=== PATIENT | male | born 1970 | race Caucasian/White ===

== ENCOUNTER 2016-12-10 08:24 | Day surgery (SDC) | payer OTHER ==
[2016-12-10 09:20] LABS: Basophils % (Auto) 0.4 % (0.0-1.8); Eosinophils % (Auto) 0.7 % (0.0-4.3); Hematocrit 45.1 % (35.5-45.6); Hemoglobin 15.4 gm/dl (11.8-15.2); Mean Corpuscular HGB Conc 34 % (32-34); Mean Corpuscular Hemoglobin 31 pg (28-32); Mean Corpuscular Volume 91 fl (84-94); Platelet Count 136 K/mm3 (140-440); Red Blood Count 4.93 M/mm3 (3.65-5.03); Red Cell Distribution Width 12.9 % (13.2-15.2); White Blood Count 9.3 K/mm3 (4.5-11.0)
[2016-12-10 09:31] LABS: INR 0.97 (0.87-1.13)
[2016-12-10 09:42] LABS: Anion Gap 15 mmol/L; Blood Urea Nitrogen 17 mg/dL (9-20); Calcium 8.5 mg/dL (8.4-10.2); Carbon Dioxide 23 mmol/L (22-30); Chloride 105.4 mmol/L (98-107); Glucose 205 mg/dL (75-100); Potassium 4.2 mmol/L (3.6-5.0); Sodium 139 mmol/L (137-145)
[2016-12-10] MEDS ORDERED: ECOTRIN PO ONE (10:30)
[2016-12-10] MEDS ORDERED: NACL 0.9% 500 ML 500 ML IV SCH (10:30)
[2016-12-10] MEDS ORDERED: NITROGLYCERIN SYRINGE 3 ML ONE (11:55)
[2016-12-10] MEDS ORDERED: VERSED ONE (11:55)
[2016-12-10] MEDS ORDERED: HEPARIN 10,000 UNITS/10 ML ONE (11:55)
[2016-12-10] MEDS ORDERED: XYLOCAINE 2% INFILTRATI ONE (11:55)
[2016-12-10] MEDS ORDERED: HEPARIN/NS 5000 UNIT/500ML(CATH LAB) 1,000 ML IR ONE (11:55)
[2016-12-10] MEDS: SUBLIMAZE ONE ×2 (12:08→12:10)
[2016-12-10 15:19] VITALS: BP 108/73
--- NOTE | 2016-12-10 16:53 | Cardiac Catherization Report ---
LEFT HEART CATHETERIZATION INDICATION FOR PROCEDURE: Chest pain, abnormal myocardial perfusion scan. ORDERING PHYSICIAN: Roberto Anthony MD PROCEDURES PERFORMED: 1. Selective left and right coronary angiography. 2. Left ventriculography. DESCRIPTION OF PROCEDURE: After obtaining written consent, the patient was draped using sterile technique. A 2% lidocaine was injected into the right groin. A 5-Vincentian vascular sheath was then inserted into the right common femoral artery. A 5-Vincentian JL4 catheter was used to selectively engage the left coronary artery. A 5-Vincentian JR4 catheter was used to selectively engage the right coronary artery. A 5-Vincentian JR4 catheter was used to hand inject the left ventriculogram. No complications occurred during the procedure. Hemostasis was achieved at the end of the procedure using a 6-Vincentian Angio-Seal device. ESTIMATED BLOOD LOSS: Minimal. SPECIMEN REMOVED: None. FINDINGS: HEMODYNAMICS: Aortic pressure was 105/60 with an LV systolic pressure of 103 mmHg. The left ventricular end-diastolic pressure was measured at 10 mmHg. There was no significant gradient across the left ventricular outflow tract. CARDIAC STRUCTURES: The left ventricle is normal in size. The left ventricular ejection fraction is estimated around 50%. There is evidence of wall motion abnormality involving the anterior and apical wall that is probably related to underlying ventricular pacing. CORONARY ANATOMY: 1. This is a right dominant circulation. 2. The left main is angiographically normal. 3. The LAD has 20% to 30% focal stenosis proximally. The LAD tapers distally to a 1-2 mm diameter vessel. 4. The left circumflex artery has no evidence of flow limiting lesions. 5. The right coronary artery is a dominant artery and is angiographically normal. IMPRESSION: 1. Nonobstructive coronary artery disease with mild luminal irregularities. 2. Normal left ventricular size with an ejection fraction estimated at 50% and evidence of an apical and anterior wall motion abnormality likely due to underlying ventricular pacing. 3. Normal left ventricular end diastolic pressure measured at 10 mmHg. 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 JOB# [id number] IVAN/PRECIOUS
--- NOTE | 2016-12-10 17:05 | Short Stay Summary ---
Short Stay Documentation Date of service: 12/10/16 - History H&P: obtained from office - Allergies and Medications Current Medications: Allergies No Known Allergies Allergy (Verified 12/10/16 08:45) Home Medications Medication Instructions Recorded Confirmed Last Taken Type HYDROcodone/APAP 5-325 [[place] 1 tab PO PRN 07/17/14 12/10/16 3 Weeks Ago History 5-325 mg TAB] ISOSORBIDE MONOnitrate [Imdur ER] 30 mg PO DAILY 12/10/16 12/10/16 12/09/16 History Insulin NPL/Insulin Lispro 25 units SQ DAILY 12/10/16 12/10/16 12/08/16 History [HumaLOG Mix 75-25 Kwikpen] Rosuvastatin (Nf) [Crestor] 5 mg PO DAILY 12/10/16 12/10/16 12/09/16 History - Physical exam General appearance: no acute distress Integumentary: no rash HEENT: Atraumatic Lungs: Clear to auscultation Breasts: deferred Heart: Regular rate Gastrointestinal: normal Male Genitourinary: deferred Female Genitourinary: deferred Rectal Exam: deferred Extremities: no ischemia Neurological: Normal gait - Brief post op/procedure progress note Date of procedure: 12/10/16 Pre-op diagnosis: Chest Pain Post-op diagnosis: same Procedure: LHC, LV gram Anesthesia: MAC Findings: See report Surgeon: NARCISO OLSEN Estimated blood loss: none Pathology: none Condition: stable - Hospital course Hospital course: Uneventful - Disposition Condition at discharge: Good Disposition: DISCHARGED TO HOME OR SELFCARE Short Stay Discharge Plan Activity: no driving until cleared by PCP Weight Bearing Status: Non-Weight Bearing Diet: low fat, low cholesterol, low salt Follow up with: KAYLIN JUAN MD [Primary Care Provider] - 7 Days Forms: CardCath PCI D/C Instructions
== END 2016-12-10 15:00 | disposition home or self-care (01) ==
LOC: OPU 08:24
PROVIDERS: ATTEND Internal Medicine Cardiovascular Disease
DX: I25.10 Atherosclerotic heart disease of native coronary artery without angina pectoris (principal); I44.2 Atrioventricular block, complete; E11.9 Type 2 diabetes mellitus without complications; E78.5 Hyperlipidemia, unspecified; Z87.891 Personal history of nicotine dependence; Z82.49 Family history of ischemic heart disease and other diseases of the circulatory system; Z83.49 Family history of other endocrine, nutritional and metabolic diseases; Z83.3 Family history of diabetes mellitus
CPT/HCPCS: 36415; 80048; 85025; 85610; 85730; 93005; 93010; 93458; C1760; J1644; J2250; J3010; J7040; Q9967

== ENCOUNTER 2017-02-22 13:11 | Day surgery (SDC) | payer OTHER ==
[2017-02-22] MEDS ORDERED: NACL 0.45% 1000 ML 1,000 ML IV ONE (13:38)
[2017-02-22 13:50] LABS: Basophils % (Auto) 0.7 % (0.0-1.8); Eosinophils % (Auto) 0.6 % (0.0-4.3); Hematocrit 46.4 % (35.5-45.6); Hemoglobin 15.7 gm/dl (11.8-15.2); Mean Corpuscular HGB Conc 34 % (32-34); Mean Corpuscular Hemoglobin 31 pg (28-32); Mean Corpuscular Volume 91 fl (84-94); Platelet Count 130 K/mm3 (140-440); Red Blood Count 5.09 M/mm3 (3.65-5.03); Red Cell Distribution Width 13.3 % (13.2-15.2); White Blood Count 7.5 K/mm3 (4.5-11.0)
[2017-02-22] MEDS ORDERED: NACL 0.9% 500 ML IR ONE (13:56)
[2017-02-22] MEDS ORDERED: ANCEF/STERILE WATER 2 GM/20 ML 2 GM/20 ML SYRINGE IV ONE (13:57)
[2017-02-22 14:00] LABS: INR 0.97 (0.87-1.13)
[2017-02-22] MEDS ORDERED: NACL 0.45% 1000 ML 1,000 ML IV SCH (14:00)
[2017-02-22] MEDS ORDERED: D5/0.45NS 1,000 ML IV SCH (14:00)
[2017-02-22 14:01] LABS: Anion Gap 15 mmol/L; Blood Urea Nitrogen 14 mg/dL (9-20); Calcium 8.7 mg/dL (8.4-10.2); Carbon Dioxide 23 mmol/L (22-30); Chloride 103.4 mmol/L (98-107); Glucose 121 mg/dL (75-100); Potassium 3.9 mmol/L (3.6-5.0); Sodium 137 mmol/L (137-145)
[2017-02-22] MEDS ORDERED: ANCEF IR NR (14:04)
[2017-02-22] MEDS ORDERED: NACL 0.9% IR NR (14:04)
[2017-02-22] MEDS ORDERED: NACL 0.9% 1 ML, VANCOMYCIN VIAL 1,000 MG IR ONE (14:42)
[2017-02-22] MEDS ORDERED: ANCEF/STERILE WATER 2 GM/20 ML 2 GM/20 ML SYRINGE IV NR (15:00)
[2017-02-22] MEDS: VERSED ONE ×4 (15:38→16:11)
[2017-02-22] MEDS: SUBLIMAZE ONE ×4 (15:38→16:02)
[2017-02-22] MEDS: XYLOCAINE 1% 20 mL ONE ×2 (15:40→15:53)
[2017-02-22] MEDS: MARCAINE 0.5% 60 ML INFILTRATI ONE ×2 (15:42→15:53)
[2017-02-22] MEDS ORDERED: VANCOMYCIN VIAL 1,000 MG in NACL 0.9% 1,000 ML IRRIGATION ONE (15:42)
[2017-02-22] MEDS ORDERED: SUBLIMAZE ONE (16:06)
--- NOTE | 2017-02-22 16:46 | Short Stay Summary ---
Short Stay Documentation Date of service: 02/22/17 Narrative H&P: 46 YO man with h/o SSS s/p dual chamber pacemaker whose device has now reached AROLDO. He is scheduled for pacemaker generator replacement today. He has no cardiac complaints. - History Past Medical History: other (sick sinus syndrome) Past Surgical History: Other (pacemaker implant) Social history: no smoking, no alcohol abuse - Allergies and Medications Current Medications: Allergies No Known Allergies Allergy (Verified 12/10/16 08:45) Home Medications Medication Instructions Recorded Confirmed Last Taken Type HYDROcodone/APAP 5-325 [[place] 1 tab PO PRN 07/17/14 02/22/17 02/21/17 History 5-325 mg TAB] ISOSORBIDE MONOnitrate [Imdur ER] 30 mg PO DAILY 12/10/16 02/22/17 02/21/17 History Insulin NPL/Insulin Lispro 25 units SQ DAILY 12/10/16 02/22/17 02/21/17 History [HumaLOG Mix 75-25 Kwikpen] Rosuvastatin (Nf) [Crestor] 5 mg PO DAILY 12/10/16 02/22/17 02/22/17 History Active Medications Sodium Chloride (Nacl 0.45% 1000 Ml) 1,000 mls @ 50 mls/hr IV DIRECT SOL Last Admin: 02/22/17 14:17 Dose: 50 mls/hr Cefazolin Sodium (Ancef/Sterile Water 2 Gm/20 Ml) 2 gm in 20 mls @ 80 mls/hr IV PREOP NR PRN Reason: Protocol Stop: 02/22/17 23:59 Last Admin: 02/22/17 15:25 Dose: 20 mls - Physical exam General appearance: no acute distress Integumentary: no rash Lungs: Clear to auscultation, Other (pacemaker site is well healed.) Heart: Regular rate, no No murmurs Gastrointestinal: normal, normoactive bowel sounds Female Genitourinary: normal Extremities: No edema - Brief post op/procedure progress note Date of procedure: 02/22/17 Procedure: See procedure note in paper chart. - Hospital course Hospital course: stable observation - Disposition Condition at discharge: Good Disposition: DISCHARGED TO HOME OR SELFCARE Short Stay Discharge Plan Activity: advance as tolerated Diet: regular Wound: open to air Follow up with: BRAD SPIVEY MD [Staff Physician] - 7 Days Prescriptions: Cephalexin [Keflex] 500 mg PO Q8HR #9 cap oxyCODONE /ACETAMINOPHEN [Percocet 5/325] 1 tab PO Q6HR PRN #10 tablet PRN Reason: Pain
[2017-02-22 18:17] VITALS: BP 98/61
== END 2017-02-22 18:30 | disposition home or self-care (01) ==
LOC: OPU 13:11
PROVIDERS: ATTEND Internal Medicine Cardiovascular Disease
DX: Z45.010 Encounter for checking and testing of cardiac pacemaker pulse generator [battery] (principal); I49.5 Sick sinus syndrome; Z79.01 Long term (current) use of anticoagulants
CPT/HCPCS: 33228; 36415; 80048; 85025; 85610; 85730; 93005; 93010; C1781; C1785; J0690; J2250; J3010; J3370

== ENCOUNTER 2017-07-14 22:36 | Emergency (ER) | payer OTHER ==
[2017-07-14 23:51] LABS: Basophils % (Auto) 0.3 % (0.0-1.8); Eosinophils % (Auto) 0.7 % (0.0-4.3); Hematocrit 47.5 % (35.5-45.6); Mean Corpuscular HGB Conc 34 % (32-34); Mean Corpuscular Hemoglobin 31 pg (28-32); Mean Corpuscular Volume 92 fl (84-94); Platelet Count 132 K/mm3 (140-440); Red Blood Count 5.15 M/mm3 (3.65-5.03); Red Cell Distribution Width 13.6 % (13.2-15.2); White Blood Count 8.6 K/mm3 (4.5-11.0)
[2017-07-14 23:54] LABS: Amylase 79 units/L (27-131); Anion Gap 20 mmol/L; BUN/Creatinine Ratio 28.33; Blood Urea Nitrogen 17 mg/dL (9-20); Calcium 9.1 mg/dL (8.4-10.2); Carbon Dioxide 21 mmol/L (22-30); Chloride 98.9 mmol/L (98-107); Glucose 300 mg/dL (75-100); Lipase 44 units/L (13-60); Potassium 4.3 mmol/L (3.6-5.0); Sodium 136 mmol/L (137-145)
[2017-07-15 01:28] LABS: Bilirubin,Urine NEG (Negative); Blood,Urine NEG (Negative); Ketones,Urine TR mg/dL (Negative); Leukocyte Esterase,Urine NEG (Negative); Mucus,Urine FEW /HPF; Nitrite,Urine NEG (Negative); Protein,Urine <15 mg/dL mg/dL (Negative); Urobilinogen,Urine < 2.0 mg/dL (<2.0); WBC,Urine < 1.0 /HPF (0.0-6.0)
--- NOTE | 2017-07-15 01:45 | XRay Report ---
FINAL REPORT PROCEDURE: XR HUMERUS 2+V RT TECHNIQUE: RIGHT humerus radiographs, AP and lateral views. HISTORY: Right arm pain. COMPARISON: Right shoulder radiographs dated same day and time. FINDINGS: Fracture (s) and/or Dislocation(s): None . Joint space(s): Normal. Soft tissues: Normal. Bone mineralization: Normal. Foreign bodies: None. IMPRESSION: No radiographic evidence of acute abnormality.
--- NOTE | 2017-07-15 01:49 | XRay Report ---
FINAL REPORT PROCEDURE: XR FEMUR 2+V RT TECHNIQUE: RIGHT femur radiographs, AP and lateral views. HISTORY: Right thigh pain. COMPARISON: Right hip radiographs dated same day and time FINDINGS: Fracture (s) and/or Dislocation(s): None . Joint space: Slight narrowing of the right hip joint. Mild medial compartment narrowing of the knee. Soft tissues: Normal . Bone mineralization: Normal . Foreign bodies: None . IMPRESSION: Degenerative changes without radiographic evidence of displaced fracture.
--- NOTE | 2017-07-15 02:01 | XRay Report ---
FINAL REPORT PROCEDURE: XR HIP 2-3V RT TECHNIQUE: RIGHT hip radiographs, 2 views each, including AP view of the pelvis. HISTORY: Right hip pain. COMPARISON: Right femur radiographs dated same day and time FINDINGS: Fracture (s) and/or Dislocation(s): None . Joint space(s): Slight narrowing of the bilateral hip joints. Mild lucency of the right sacrum. Soft tissues: Normal. Bone mineralization: Normal. Foreign bodies: None. IMPRESSION: No radiographic evidence of displaced hip fracture. Mild lucency about the right sacrum, may be related to partial lumbarization of S1. Consider further evaluation including dedicated lumbar spine radiographs if there is continued clinical concern.
--- NOTE | 2017-07-15 02:03 | XRay Report ---
FINAL REPORT PROCEDURE: XR SHOULDER 2+V RT TECHNIQUE: Right shoulder radiographs including AP views in internal and external rotation and abduction. CPT 21999 HISTORY: RIGHT SHOULDER PAIN COMPARISON: No prior studies are available for comparison. FINDINGS: Fracture (s) and/or Dislocation(s): None . Joint space(s): Normal . Soft tissues: Normal . Bone mineralization: Normal . Foreign bodies: None . IMPRESSION: Normal Examination
--- NOTE | 2017-07-15 02:03 | XRay Report ---
FINAL REPORT PROCEDURE: XR RIBS UNILAT 2V RT TECHNIQUE: RIGHT rib radiographs, 3 views of the ribs, including PA chest. HISTORY: CHEST PAIN COMPARISON: No prior studies are available for comparison. FINDINGS: Heart: Normal. Mediastinum/Vessels: There is a cardiac pacemaker with battery in the left chest wall Lungs: Normal. Pleural space: Normal. Pneumothorax: None. Bony thorax/ribs: No significant abnormality. IMPRESSION: There is no evidence of an acute cardiopulmonary process.
--- NOTE | 2017-07-15 02:04 | XRay Report ---
FINAL REPORT PROCEDURE: XR SPINE CERVICAL 2-3V TECHNIQUE: Cervical spine radiographs, AP, lateral, and open-mouth odontoid views. CPT 06463 HISTORY: SPINAL PAIN COMPARISON: No prior studies are available for comparison. FINDINGS: Prevertebral soft tissues: Normal . Alignment: Normal . Vertebral body heights/Disk spaces: Normal . Fracture(s): None . Facets: Normal . Bone mineralization: Normal . IMPRESSION: Normal Examination
[2017-07-15 02:59] VITALS: BP 109/73
[2017-07-15] MEDS ORDERED: FLEXERIL PO ONE (03:28)
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
--- NOTE | 2017-07-15 04:09 | XRay Report ---
FINAL REPORT PROCEDURE: XR SPINE LUMBOSACRAL 2-3V TECHNIQUE: Lumbar spine radiographs, including AP, lateral, and lumbosacral spot views. CPT 50637 HISTORY: back pain COMPARISON: No prior studies are available for comparison. FINDINGS: Alignment: Normal. Vertebral body heights/Disk spaces: Mild spur formation off the vertebral bodies is identified. Mild loss of disc space height at the L5-S1 level.. Fracture(s): None. Facets: Normal. Bone mineralization: Normal. IMPRESSION: No evidence of acute fracture or dislocation. Mild degenerative arthritis and degenerative disc changes..
== END 2017-07-15 04:36 | disposition home or self-care (01) ==
LOC: ED 22:36
DX: M54.5 Low back pain (principal); E11.9 Type 2 diabetes mellitus without complications; M19.90 Unspecified osteoarthritis, unspecified site; Z95.0 Presence of cardiac pacemaker; Z79.4 Long term (current) use of insulin; V49.9XXA Car occupant (driver) (passenger) injured in unspecified traffic accident, initial encounter; Y93.89 Activity, other specified; Y99.9 Unspecified external cause status; Y92.410 Unspecified street and highway as the place of occurrence of the external cause
CPT/HCPCS: 36415; 72040; 72100; 80048; 81001; 82150; 83690; 85025; 93005; 93010

== ENCOUNTER 2018-08-10 11:01 | Outpatient (CLI) | payer OTHER ==
--- NOTE | 2018-08-10 11:45 | XRay Report ---
ROUTINE CHEST, TWO VIEWS: HISTORY: Cough, wheezing. The trachea, heart, mediastinal contour, lung vee and bony thorax are unremarkable. A 2-lead pacemaker device is unchanged in position since 07/14/17. IMPRESSION: Unremarkable chest x-ray.
--- NOTE | 2018-08-10 13:25 | XRay Report ---
LUMBOSACRAL SPINE, 5 VIEWS History: Back pain. Findings: Straightening of the normal lordosis and minimal levocurvature to the lumbar spine is unchanged since 07/15/17. [id number] degenerative disc disease at L3-4 and L4-5 appears stable. Mild facet arthropathy at L4-5 is stable. No evidence for fracture, bone lesion or subluxation. No pars defect or high-grade neural foraminal narrowing is demonstrated on the oblique images the sacrum and SI joints are unremarkable Impression: Lumbar spondylosis unchanged since 07/15/17.
== END 2018-08-10 11:02 | disposition home or self-care (01) ==
LOC: XRAY 11:01
PROVIDERS: ATTEND Nurse Practitioner
DX: M47.896 Other spondylosis, lumbar region (principal); E78.00 Pure hypercholesterolemia, unspecified; M19.90 Unspecified osteoarthritis, unspecified site; E11.9 Type 2 diabetes mellitus without complications; Z87.891 Personal history of nicotine dependence
CPT/HCPCS: 71046; 72110

== ENCOUNTER 2019-03-14 08:54 | Outpatient (CLI) | payer OTHER ==
[2019-03-14 09:58] LABS: Mean Corpuscular HGB Conc 34 % (32-34); Mean Corpuscular Volume 92 fl (84-94); Platelet Count 147 K/mm3 (140-440); Red Blood Count 5.09 M/mm3 (3.65-5.03); Red Cell Distribution Width 13.4 % (13.2-15.2)
[2019-03-14 10:12] LABS: Alanine Aminotransferase 26 units/L (7-56); Albumin 4.3 g/dL (3.9-5); BUN/Creatinine Ratio 28; Blood Urea Nitrogen 14 mg/dL (9-20); Calcium 8.7 mg/dL (8.4-10.2); Hemolysis Index 16
[2019-03-18 12:44] LABS: Vitamin D, 25-OH, D2 <4 ng/mL
== END 2019-03-14 08:55 | disposition home or self-care (01) ==
LOC: LAB 08:54
PROVIDERS: ATTEND Internal Medicine
DX: E11.9 Type 2 diabetes mellitus without complications (principal); E55.9 Vitamin D deficiency, unspecified; N52.9 Male erectile dysfunction, unspecified; E78.5 Hyperlipidemia, unspecified; I44.1 Atrioventricular block, second degree; E78.00 Pure hypercholesterolemia, unspecified
CPT/HCPCS: 36415; 80053; 82306; 82607; 83036; 84153; 84443; 85027

== ENCOUNTER 2019-07-04 08:29 | Outpatient (CLI) | payer OTHER ==
[2019-07-04 10:43] LABS: Chol/HDL Ratio 4.85 %
[2019-07-07 14:21] LABS: Vitamin D, 25-OH, D2 <4 ng/mL
== END 2019-07-04 08:30 | disposition home or self-care (01) ==
LOC: LAB 08:29
PROVIDERS: ATTEND Internal Medicine
DX: E11.9 Type 2 diabetes mellitus without complications (principal); E78.5 Hyperlipidemia, unspecified; E55.9 Vitamin D deficiency, unspecified; E78.00 Pure hypercholesterolemia, unspecified
CPT/HCPCS: 36415; 80061; 82306; 83036

== ENCOUNTER 2019-07-25 10:29 | Outpatient (CLI) | payer OTHER ==
[2019-07-25 11:27] LABS: Bilirubin,Urine NEG (Negative); Blood,Urine NEG (Negative); Color,Urine Yellow (Yellow); Protein,Urine <15 mg/dL mg/dL (Negative); Urobilinogen,Urine < 2.0 mg/dL (<2.0); WBC,Urine < 1.0 /HPF (0.0-6.0)
== END 2019-07-25 10:30 | disposition home or self-care (01) ==
LOC: LAB 10:29
PROVIDERS: ATTEND Internal Medicine
DX: N39.0 Urinary tract infection, site not specified (principal); E78.00 Pure hypercholesterolemia, unspecified; E11.9 Type 2 diabetes mellitus without complications
CPT/HCPCS: 81001

== ENCOUNTER 2019-11-23 08:44 | Outpatient (CLI) | payer OTHER ==
[2019-11-23 13:46] LABS: Chol/HDL Ratio 3.83 %
== END 2019-11-23 08:45 | disposition home or self-care (01) ==
LOC: LAB 08:44
PROVIDERS: ATTEND Internal Medicine
DX: E78.5 Hyperlipidemia, unspecified (principal); E11.9 Type 2 diabetes mellitus without complications
CPT/HCPCS: 36415; 80061; 83036

== ENCOUNTER 2022-07-05 08:51 | Outpatient (CLI) | payer OTHER ==
[2022-07-05 12:33] LABS: Basophils # (Auto) 0.1 K/mm3 (0.0-0.1); Basophils % (Auto) 0.7 % (0.0-1.8); Eosinophils # (Auto) 0.1 K/mm3 (0.0-0.4); Eosinophils % (Auto) 1.4 % (0.0-4.3); Hematocrit 47.6 % (35.5-45.6); Hemoglobin 15.9 gm/dl (11.8-15.2); Lymphocytes # (Auto) 2.8 K/mm3 (1.2-5.4); Lymphocytes % (Auto) 36.5 % (13.4-35.0); Mean Corpuscular HGB Conc 33 % (32-34); Mean Corpuscular Volume 93 fl (84-94); Monocytes # (Auto) 0.7 K/mm3 (0.0-0.8); Monocytes % (Auto) 9.3 % (0.0-7.3); Platelet Count 151 K/mm3 (140-440); Red Blood Count 5.14 M/mm3 (3.65-5.03)
[2022-07-05 12:53] LABS: Alanine Aminotransferase 36 units/L (7-56); Albumin 4.5 g/dL (3.9-5); Blood Urea Nitrogen 15 mg/dL (9-20); Calcium 9.2 mg/dL (8.4-10.2); Chol/HDL Ratio 4.31 %; HDL Cholesterol 32 mg/dL (40-59); Hemolysis Index 6; LDL Cholesterol,Direct 96 mg/dL (50-130)
[2022-07-05 12:55] LABS: BUN/Creatinine Ratio 25
[2022-07-05 15:34] LABS: Creatinine,Urine < 4.2 mg/dL (0.1-20.0)
== END 2022-07-05 08:52 | disposition home or self-care (01) ==
LOC: LABHHL 08:51
PROVIDERS: ATTEND Internal Medicine
DX: E11.65 Type 2 diabetes mellitus with hyperglycemia (principal); E78.5 Hyperlipidemia, unspecified; R39.11 Hesitancy of micturition; E55.9 Vitamin D deficiency, unspecified
CPT/HCPCS: 36415; 80053; 80061; 82043; 82306; 83036; 84153; 84443; 85025